=== PATIENT | male | born 2000 | race Caucasian/White ===

== ENCOUNTER 2019-12-14 10:49 | Emergency (ER) | payer BC ==
[2019-12-14 11:23] VITALS: RESP 18
[2019-12-14] MEDS ORDERED: ACETAMINOPHEN TAB 500 MG TAB PO STA (11:36)
[2019-12-14] MEDS ORDERED: IBUPROFEN 600 MG TAB PO STA (11:36)
[2019-12-14] MEDS ORDERED: SODIUM CHLORIDE 0.9% 2,000 ML IV ONE (11:37)
[2019-12-14] MEDS ORDERED: OSELTAMIVIR 75 MG CAP PO STA (12:00)
--- NOTE | 2019-12-14 12:00 | ED ---
URI HPI - General Chief Complaint: Upper Respiratory Infection Stated Complaint: Cough/vomiting/poss influ B Time Seen by Provider: 12/14/19 11:25 Source: patient, RN notes reviewed, old records reviewed Mode of arrival: ambulatory Limitations: no limitations - History of Present Illness Initial Comments: 19-year-old male presents today for near-syncopal episode. He's had a high fever. Was diagnosed with influenza PCP. Symptoms starting 3 days ago. Patient had nausea and vomiting for the last 14 hours. He was dehydrated. Patient has had a prescription recently written for Tamiflu but has not started that yet. - Related Data Home Medications Medication Instructions Recorded Confirmed Lisdexamfetamine Dimesylate 70 mg PO QAM 03/15/16 03/15/16 [Vyvanse] Previous Rx's Medication Instructions Recorded Ibuprofen [Motrin] 600 mg PO Q8HR PRN #20 tab 12/14/19 Ondansetron Odt [Zofran Odt] 4 mg PO Q8HR PRN #12 tab 12/14/19 Oseltamivir [Tamiflu] 75 mg PO Q12HR #10 cap 12/14/19 Allergies Allergy/AdvReac Type Severity Reaction Status Date / Time No Known Allergies Allergy Verified 03/15/16 13:25 Review of Systems ROS Statement: Those systems with pertinent positive or pertinent negative responses have been documented in the HPI. ROS Other: All systems not noted in ROS Statement are negative. Past Medical History Past Medical History: No Reported History History of Any Multi-Drug Resistant Organisms: MRSA Date of last positivie culture/infection: 2011 MDRO Source:: RIGHT LEG Past Surgical History: Ear Surgery Past Psychological History: ADD/ADHD Smoking Status: Never smoker Past Alcohol Use History: None Reported Past Drug Use History: None Reported General Exam - General Exam Comments Initial Comments: 19-year-old male. Alert and oriented 3. Patient appears in no significant distress. General: Well appearing, well nourished, in no distress. Oriented x 3, normal mood and affect . Ambulating without difficulty. Skin: Good turgor, no rash, unusual bruising or prominent lesions Hair: Normal texture and distribution. HEENT: Head: Normocephalic, atraumatic, no visible or palpable masses, depressions, or scaring. Eyes: Visual acuity intact, conjunctiva clear, sclera non-icteric, EOM intact, PERRL. Ears: EACs clear, TMs translucent & cone of light visualized. hearing intact. Nose: No external lesions, mucosa non-inflamed, septum and turbinates normal Mouth: Dry oropharynx. Teeth/Gums: No obvious caries or periodontal disease. No gingival inflammation or significant resorption. Pharynx: Mucosa non-inflamed, no tonsillar hypertrophy or exudate Neck: Supple, without lesions, bruits, or adenopathy, thyroid non-enlarged and non-tender Heart: No cardiomegaly or thrills; regular rate and rhythm, no murmur or gallop Lungs: Clear to auscultation and percussion Abdomen: Bowel sounds normal, no tenderness, organomegaly, masses, or hernia Back: Spine normal without deformity or tenderness, no CVA tenderness Extremities: No amputations or deformities, cyanosis, edema or varicosities, peripheral pulses intact Musculoskeletal: Normal gait and station. No misalignment, asymmetry, crepitation, defects, tenderness, masses, effusions, decreased range of motion, instability, atrophy or abnormal strength or tone in the head, neck, spine, ribs, pelvis or extremities. Neurologic: CN 2-12 normal. Sensation to pain, touch, and proprioception normal. DTRs normal in upper and lower extremities. No pathologic reflexes. Limitations: no limitations Course Vital Signs 12/14/19 11:20 Temperature 103.1 F H Pulse Rate 111 H Respiratory 18 Rate Blood Pressure 149/79 O2 Sat by Pulse 98 Oximetry Medical Decision Making - Medical Decision Making 19-year-old male presents today for fevers, cough congestion nausea and vomiting. Sent in from his PCP with high fever, near syncopal episode. He did test positive for influenza at PCPs office. Flu B is positive.. Patient no distress and is any significant pain that she is feeling lightheaded dehydrated. Was given a 2 L bolus, Motrin Tylenol and Tamiflu. He's had symptoms for 3 days in room across of Tamiflu that it being beneficial. Discussed discharge the Patient a prescription for Tamiflu Zofran and the importance of alternating Motrin Tylenol. All questions were answered return parameters were discussed. - Lab Data Lab Results 12/14/19 Range/Units 11:22 Influenza Type A RNA Not Detected (Not Detectd) Influenza Type B (PCR) Detected H (Not Detectd) 12/14/19 12:03 EKG performed at 1149 shows sinus tachycardia, rightward axis. Borderline EKG. Ventricular rate of 10 1 bpm. Pulse 128 ms. QS duration is 90 ms. QT QTc is 300/39 ms. Disposition Clinical Impression: Dehydration, Influenza Disposition: HOME SELF-CARE Condition: Good Instructions (If sedation given, give patient instructions): Influenza (ED) Additional Instructions: Please use medication as discussed. Advised to rest, remain hydrated. Please follow up with family doctor if symptoms have not improved over the next two days. Please return to the emergency room if your symptoms increase or worsen or for any other concerns. Prescriptions: Ibuprofen [Motrin] 600 mg PO Q8HR PRN #20 tab PRN Reason: Fever Oseltamivir [Tamiflu] 75 mg PO Q12HR #10 cap Ondansetron Odt [Zofran Odt] 4 mg PO Q8HR PRN #12 tab PRN Reason: Nausea Is patient prescribed a controlled substance at d/c from ED?: No Referrals: None,Stated [Primary Care Provider] - 1-2 days Time of Disposition: 12:34
[2019-12-14 12:42] VITALS: TEMP 101.2
[2019-12-14 13:07] VITALS: BP 115/74; PULSE 105
== END 2019-12-14 13:05 | disposition home or self-care (01) ==
LOC: EC 10:49
DX: J10.1 Influenza due to other identified influenza virus with other respiratory manifestations (principal); E86.0 Dehydration; R55 Syncope and collapse; R11.2 Nausea with vomiting, unspecified; F90.9 Attention-deficit hyperactivity disorder, unspecified type; Z79.899 Other long term (current) drug therapy; Z86.14 Personal history of Methicillin resistant Staphylococcus aureus infection
CPT/HCPCS: 87502; 93005; 96360; 99284